=== PATIENT | female | born 1985 | race Caucasian/White ===

== ENCOUNTER 2017-04-28 06:34 | Day surgery (SDC) | payer OTHER ==
[2017-04-28] MEDS ORDERED: DOXYCYCLINE HY100 MG PO (18:09)
[2017-04-28] MEDS ORDERED: CODE1TAB37 PO (18:09)
== END 2017-04-28 20:50 | disposition home or self-care (01) ==
LOC: CIR.AMB 06:34
DX: D25.0 Submucous leiomyoma of uterus (principal); N72 Inflammatory disease of cervix uteri; N84.0 Polyp of corpus uteri

== ENCOUNTER 2023-12-22 05:25 | Day surgery (SDC) | payer OTHER ==
[~2023-12-22 05:25] MED LIST: CODE1TAB37 PO; DOXYCYCLINE HY100 MG PO
[2023-12-22] MEDS ORDERED: POVIDONE-IODINE 118 ML BOTT TOP ONE (06:56)
[2023-12-22] MEDS ORDERED: CEFOXITIN SODIUM 2,000 MG VIAL IV ONE (07:02)
[2023-12-22] MEDS ORDERED: PROMETHAZINE HCL 50 MG/ML AMPUL IM ONE (08:30)
[2023-12-22] MEDS ORDERED: MORPHINE SULFATE 4 MG/ML VIAL IV PRN (08:30)
[2023-12-22] MEDS ORDERED: MORGIDOX100 MG PO (08:30)
[2023-12-22] MEDS ORDERED: NAPR500T14 PO (08:31)
== END 2023-12-22 12:55 | disposition home or self-care (01) ==
LOC: CIR.AMB 05:25
PROVIDERS: ATTEND Obstetrics & Gynecology
DX: D25.0 Submucous leiomyoma of uterus (principal); N84.0 Polyp of corpus uteri; N92.5 Other specified irregular menstruation; R00.1 Bradycardia, unspecified; K29.70 Gastritis, unspecified, without bleeding; K59.00 Constipation, unspecified